=== PATIENT | female | born 1985 | race Caucasian/White ===

== ENCOUNTER 2016-07-26 10:46 | Emergency (ER) | payer MEDICAID ==
[~2016-07-26] VITALS: Wt 60.0 kg
[~2016-07-26 10:46] MED LIST: PNV1TABL43 PO
[2016-07-26] MEDS ORDERED: BEN25 PO (11:24)
[2016-07-26] MEDS ORDERED: [UNRECOGNIZED DRUG - CODE] TP (11:25)
--- NOTE | 2016-07-26 11:35 | ERD ---
ER Documentation Chief Complaint Date/Time DATE: 07/26/16 TIME: 11:28 Chief Complaint SCALP ITCHING FOR THE PAST 4 DAYS. SOME SCALP PAIN . HPI This is a 30-year-old female presents to the ER for scalp itching for the last 4 days. Patient denies any fevers or chills. No sick contacts at home. Patient has not had anything for her scalp itchiness. She has has been constant and severe. 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 She does not have any rashes. She denies any shortness of breath or difficulty in breathing. She denies any facial swelling ROS 12 point review of systems was done, all negative except per HPI. Medications Home Meds Active Scripts Salicylic Acid (Salicylic Acid) 177 Ml Shampoo, 177 ML TP QHS for 3 Days Prov:BARRY CROWE 07/26/16 Diphenhydramine Hcl* (Benadryl*) 25 Mg Cap, 25 MG PO Q6, #30 CAP Prov:BARRY CROWE 07/26/16 Reported Medications Vit/Fe Fumarate/Fa* ( Vitamin Tablet*) 1 Tab Tablet, 1 TAB PO DAILY, TAB 07/29/14 Allergies Allergies: Coded Allergies: No Known Allergy (Unverified , 07/29/14) PMhx/Soc History of Surgery: Yes (C/S x 2) Hx Alcohol Use: No Hx Substance Use: No Hx Tobacco Use: No Physical Exam Vitals Vital Signs Date Time Temp Pulse Resp B/P Pulse Ox O2 Delivery O2 Flow Rate FiO2 07/26/16 10:49 98.5 77 20 107/66 97 Physical Exam GENERAL: The patient is well developed and appropriate for usual state of health , in no apparent distress. HEENT: Atraumatic. There is some dandruff seen, no evidence of ringworm or lice. CHEST: Clear to auscultation bilaterally. There are no rales, wheezes or rhonchi. HEART: Regular rate and rhythm. No murmurs, clicks, rubs or gallops. EXTREMITIES: Full range of motion. Grossly neurovascularly intact. NEURO: Alert and oriented. SKIN: The skin is warm and dry. Procedures/MDM This is a 30-year-old female that presents to the ER for scalp itching. At this time there was evidence of some dandruff. Patient may have dry scalp. There is no evidence of lice. I do not believe the patient is having an allergic reaction. Patient is afebrile, does not have any angioedema and is well-appearing. She will be sent home with salicylic acid shampoo and with Benadryl. Patient is to follow-up with her primary care doctor within 1-2 days return to ER sooner if symptoms worsen. Plan was discussed with the patient she understands and agrees with plan. Departure Diagnosis: Primary Impression: Itching Condition: Stable Patient Instructions: Taking Medication Safely Additional Instructions: Call your primary care doctor TOMORROW for an appointment during the next 1-2 days.See the doctor sooner or return here if your condition worsens before your appointment time. BARRY CROWE Jul 26, 2016 11:35
== END 2016-07-26 12:18 | disposition home or self-care (01) ==
LOC: FTE 10:46
DX: L29.8 Other pruritus (principal)
CPT/HCPCS: 99283